=== PATIENT | female | born 1935 | race Caucasian/White ===

== ENCOUNTER 2018-03-04 10:30 | Inpatient (IN) ==
[2018-02-25 18:24] LABS: Basophils # (Auto) 0 K/mcL (0.0-0.3); Basophils % (Auto) 0.3 % (0.0-2.0); Eosinophils # (Auto) 0.3 K/mcL (0.0-0.7); Eosinophils % (Auto) 3.3 % (0.0-7.0); Granulocytes % (Auto) 61.5 % (38.0-78.0); Lymphocytes # (Auto) 2.9 K/mcL (1.5-4.8); Lymphocytes % (Auto) 27.5 % (15.5-49.0); Mean Cell Volume 86.4 fL (80.0-100.0); Mean Corpuscular HGB Conc 32.8 g/dL (31.0-36.0); Mean Corpuscular Hemoglobin 28.3 pg (26.0-34.0); Monocytes # (Auto) 0.8 K/mcL (0.1-0.9); Monocytes % (Auto) 7.4 % (1.0-12.0); Platelet Count 250 K/mcL (140-440); RBC 5.11 M/mcL (4.00-5.20); Red Cell Distribution Width 14.6 % (11.5-14.5)
[2018-02-25 18:46] LABS: Blood Urea Nitrogen 14 mg/dl (8-23)
[2018-02-25 23:48] LABS: Appearance,Urine CLOUDY; Bilirubin,Urine NEG (NEG); Color,Urine YELLOW; Glucose,Urine (UA) NEGATIVE (NEG); Leukocyte Esterase,Urine 500 /uL (NEG); Protein,Urine NEG (NEG); Urine Blood 0.03 mg/dL (<0.03); Urobilinogen,Urine NEG (NEG)
[2018-02-26 00:56] LABS: Bacteria,Urine MANY /hpf (0); Urine RBC 10 /hpf (0-1); Urine Squamous Epithelial Cell 20 /hpf (0-4); Urine WBC > 182 /hpf (0-4)
[~2018-03-04 10:30] MED LIST: CELECOXIB 200 MG CAPSULE PO SCH; ceFAZolin 1 GM VIAL IV SCH; oxyCODONE 10 MG TAB.ER.12H PO SCH
[2018-03-04 14:01] LABS: Appearance,Urine CLEAR; Bilirubin,Urine NEG (NEG); Color,Urine YELLOW; Glucose,Urine (UA) NEGATIVE (NEG); Leukocyte Esterase,Urine NEG /uL (NEG); Protein,Urine NEG (NEG); Specific Gravity,Urine 1.013 (1.000-1.035); Urine Blood NEG mg/dL (<0.03); Urobilinogen,Urine NEG (NEG)
[2018-03-04] MEDS ORDERED: MIDAZOLAM 2 MG/2 ML VIAL ONE (15:06)
[2018-03-04] MEDS ORDERED: ePHEDrine 50 MG/ML AMPUL IV ONE (15:06)
[2018-03-04] MEDS ORDERED: PROPOFOL 200 MG/20 ML VIAL IV ONE (15:06)
[2018-03-04] MEDS ORDERED: DEXAMETHASONE 10 MG/ML VIAL ONE (15:06)
[2018-03-04] MEDS ORDERED: GENTAMICIN SULFATE 800 MG/20 ML VIAL IR ONE (15:45)
[2018-03-04] MEDS ORDERED: PROMETHAZINE 25 MG/ML VIAL IV PRN (16:20)
[2018-03-04] MEDS ORDERED: FLUMAZENIL 0.1 MG/ML ML IV PRN (16:20)
[2018-03-04] MEDS ORDERED: ACETAMINOPHEN 1,000 MG/100 ML BOTTLE IV ONE (16:20)
[2018-03-04] MEDS ORDERED: ONDANSETRON 4 MG/2 ML VIAL IV PRN ×2 (16:20→16:47)
[2018-03-04] MEDS ORDERED: NALOXONE HCL 0.4 MG/ML VIAL IV PRN (16:20)
[2018-03-04] MEDS ORDERED: MEPERIDINE 25 MG/ML SYRINGE IV PRN (16:20)
[2018-03-04] MEDS ORDERED: LACTATED RINGERS 250 ML IV PRN (16:20)
[2018-03-04] MEDS ORDERED: IPRATROPIUM/ALBUTEROL 3 ML AMPUL.NEB NEB PRN (16:20)
[2018-03-04] MEDS ORDERED: diphenhydrAMINE 50 MG/ML VIAL IV PRN (16:20)
[2018-03-04] MEDS ORDERED: BENZOCAINE/MENTHOL 1 LOZENGE PO PRN ×2 (16:20→16:47)
[2018-03-04] MEDS ORDERED: LACTATED RINGERS 1,000 ML IV SCH (16:30)
--- NOTE | 2018-03-04 16:46 | Brief Operative Note ---
Date of procedure: 03/04/18 Pre-op diagnosis: left hip oa Post-op diagnosis: same Procedure: left total hip arthroplasty Grafts/Implants: Yes Anesthesia: spinal Complications: none Surgeon: Graham Caicedo Manager Registration: Nicol Cerna Estimated blood loss (cc): 150 Specimens Removed/Pathology: none sent Condition: stable Disposition: PACU
[2018-03-04] MEDS ORDERED: FLEETS ADULT ENEMA PR PRN (16:47)
[2018-03-04] MEDS ORDERED: HYDROmorphone 2 MG/ML VIAL IV PRN (16:47)
[2018-03-04] MEDS ORDERED: ONDANSETRON ODT 4 MG TABLET SL PRN (16:47)
[2018-03-04] MEDS ORDERED: POLYETHYLENE GLYCOL 3350 17 GM PACKET PO PRN (16:47)
[2018-03-04] MEDS ORDERED: METHOCARBAMOL 750 MG TABLET PO PRN (16:47)
[2018-03-04] MEDS ORDERED: ACETAMINOPHEN 325 MG TABLET PO PRN (16:47)
[2018-03-04] MEDS ORDERED: MAGNESIUM HYDROXIDE 30 ML ORAL.SUSP PO PRN (16:47)
[2018-03-04] MEDS ORDERED: BISACODYL 10 MG SUPP.RECT PR PRN (16:47)
[2018-03-04] MEDS ORDERED: TRANEXAMIC ACID 1,000 MG/10 ML VIAL IV ONE (16:47)
[2018-03-04] MEDS: fentaNYL 100 MCG/2 ML VIAL IV PRN ×2 (17:35→18:00)
[2018-03-04] MEDS ORDERED: METHOCARBAMOL 1,000 MG/10 ML VIAL IV ONE (17:50)
--- NOTE | 2018-03-04 18:03 | XRay Report ---
CLINICAL INFORMATION: Postop total hip prostheses COMPARISON: 03/22/2015 FINDINGS: Left total hip prostheses is in place. There is slightly more anteversion and lateral canting of the acetabular component and is typically seen. Right lateral hip prostheses remains in near-anatomic alignment without loosening or infection. No osseous abnormality. Soft tissue swelling. IMPRESSION: Postsurgical change as described Interpreted and Authenticated by: Graham Rico 03/04/18
[2018-03-04] MEDS: 0.9 % SODIUM CHLORIDE 1,000 ML IV SCH (18:21)
[2018-03-04] MEDS: DOCUSATE SODIUM 100 MG CAPSULE PO SCH (20:53)
[2018-03-04] MEDS: LOSARTAN 50 MG TABLET PO SCH (20:53)
[2018-03-04] MEDS: ASPIRIN 325 MG ENTERIC COATED TABLET PO SCH (20:53)
[2018-03-04] MEDS: oxyCODONE/APAP 5/325MG TABLET PO PRN (20:54)
[2018-03-04] MEDS: 0.9 % SODIUM CHLORIDE 10 ML SYRINGE IV SCH (20:56)
[2018-03-04] MEDS ORDERED: ATORVASTATIN 20 MG TABLET PO SCH (21:00)
[2018-03-04] MEDS ORDERED: SENNOSIDES 1 TABLET PO SCH (21:00)
[2018-03-04] MEDS: CLINDAMYCIN 900 MG in DEXTROSE 5% IN WATER 50 ML IV SCH (22:44)
[2018-03-05] MEDS: 0.9 % SODIUM CHLORIDE 1,000 ML IV SCH ×3 (02:58→08:29)
[2018-03-05] MEDS: 0.9 % SODIUM CHLORIDE 10 ML SYRINGE IV SCH ×2 (05:01→14:23)
[2018-03-05] MEDS: oxyCODONE/APAP 5/325MG TABLET PO PRN (05:01)
[2018-03-05] MEDS: CLINDAMYCIN 900 MG in DEXTROSE 5% IN WATER 50 ML IV SCH (07:12)
[2018-03-05] MEDS ORDERED: OMEPRAZOLE 20 MG CAPSULE PO SCH (07:30)
--- NOTE | 2018-03-05 07:46 | Orthopedic Progress Note ---
Subjective Patient information: Note initiated : 03/05/18 at 7:45 am Service Date, if different from initiated Date: [] Patient: Marely Moe 82 y/o F admitted on 03/04/18 for Left Total Hip Arthroplasty. Chief Complaint: [] Interval history: doing well. no complaints, been up with pt Objective Vital signs: Vital Signs Temp Pulse Pulse Resp BP BP Pulse Ox 03/05/18 07:05 97.7 F 65 12 110/64 95 03/05/18 03:22 97.5 F 67 12 117/61 94 03/05/18 00:00 97.4 F 64 12 122/68 96 03/04/18 21:54 91 03/04/18 20:57 96.5 F L 68 12 133/75 98 03/04/18 20:00 96 03/04/18 19:57 59 L 121/75 95 03/04/18 19:27 60 110/67 94 03/04/18 19:12 61 115/71 94 03/04/18 18:59 64 83/67 93 03/04/18 18:43 60 112/63 94 03/04/18 18:28 60 101/57 94 03/04/18 18:13 66 117/54 86 L 03/04/18 18:09 66 17 102/60 94 03/04/18 17:58 67 20 120/82 94 03/04/18 17:43 64 12 101/50 94 03/04/18 17:28 66 17 110/74 96 03/04/18 17:13 97.3 F 76 14 123/58 98 03/04/18 16:47 66 03/04/18 13:28 97.4 F 57 L 16 118/56 95 Intake and Output 03/04/18 03/05/18 03/05/18 21:59 05:59 13:59 Intake Total 2300 / 2300 1306 / 1306 Output Total 200 / 200 Balance 2300 / 2300 1106 / 1106 Intake: IV 100 / 100 1056 / 1056 Sodium Chloride 0.9% 1,000 ml @ 1000 / 1000 125 mls/hr IV .Q8H ANNY Rx#: [id number] Cleocin 900 mg In Dextrose 5% 56 / 56 in Water 50 ml @ 100 mls/hr IV Q8H ANNY Rx#:[id number] Oral 250 / 250 IV - Manual Only 2199 Output: Void Amount 200 / 200 Other: Meal Jello Percent of Meal Consumed 100% Feeding Ability Independent Weight 140 lb 8 oz Intake & Output: Intake & Output 03/04/18 03/05/18 03/05/18 21:59 05:59 13:59 Intake Total 2300 / 2300 1306 / 1306 Output Total 200 / 200 Balance 2300 / 2300 1106 / 1106 Weight 140 lb 8 oz Intake: IV 100 / 100 1056 / 1056 Sodium Chloride 0.9% 1,000 ml @ 1000 / 1000 125 mls/hr IV .Q8H ANNY Rx#: [id number] Cleocin 900 mg In Dextrose 5% 56 / 56 in Water 50 ml @ 100 mls/hr IV Q8H ANNY Rx#:[id number] Oral 250 / 250 IV - Manual Only 2199 Output: Void Amount 200 / 200 Other: Meal Jello Percent of Meal Consumed 100% Feeding Ability Independent Incision: Yes healing Incision clean and dry: Yes Dressing: Yes clean, Yes dry, Yes intact Weight bearing status: full Neurological exam IM: Yes alert, Yes normal gait, Yes oriented X3, Yes motor sensory intact, Yes neurovascular intact Extremities exam IM: No calf tenderness, Yes Foot pink and warm, Yes neurovascular intact - Labs CBC & BMP: 03/05/18 05:10 02/25/18 14:40 Labs: Orthopedic Labs 02/25/18 14:41 PT 13.6 INR 1.0 03/05/18 02/25/18 05:10 14:41 Hgb 12.5 14.5 Hct 38.1 44.2 Assessment and Plan (1) Hip osteoarthritis pod 1 s/p lorenzo wbat pain control dvt prophylaxis d/c planning Status: Acute
--- NOTE | 2018-03-05 07:47 | Discharge Summary ---
Ortho Discharge - [facility] - Patient Instructions Diet: Regular Diet Activity: activity as tolerated, weight bearing as tolerated Total Hip Protocol: Follow activity instructions as provided by Physical Therapy. Dressing Care: May shower in 2 days - Problem Maintenance (1) Hip osteoarthritis Status: Acute - Follow Up Plan Follow Up Appointments: Graham Caicedo MD [Physician] - 03/19/18 2:30 pm Disposition: Home, Self-Care Prognosis: Good Rehab Potential: Good I certify that the patient requires SNF services: No Overall status at discharge: patient is progressing back to baseline
[2018-03-05] MEDS ORDERED: POTASSIUM CHLORIDE 10 MEQ TABLET PO SCH (08:00)
--- NOTE | 2018-03-05 08:14 | Operative Note ---
DATE OF OPERATION: 03/04/2018 PREOPERATIVE DIAGNOSIS: Degenerative joint disease, left hip. POSTOPERATIVE DIAGNOSIS: Degenerative joint disease, left hip. PROCEDURE: Left total hip arthroplasty. SURGEON: Faye Caicedo M.D. [employer] SURGEON: Nicol Cerna PA-C. ANESTHESIA: Spinal with LMA assist. ESTIMATED BLOOD LOSS: 150 mL. COMPLICATIONS: None noted. SPECIMENS REMOVED: None. DRAINS: None. IMPLANTS: DePuy Barnstead Hole Eliminator; DePuy [place] Gription acetabular shell, 50 mm; DePuy [place] Altrx polyethylene acetabular liner, neutral, 32 x 50; DePuy Biolox delta ceramic femoral head +5, 32 diameter; DePuy Actis Duofix femoral stem, cementless, size 6 standard collar. INDICATIONS: The patient has had a longstanding history of worsening pain in the hip that has failed conservative treatment. Radiographs have confirmed advanced degenerative joint disease. After a long discussion about treatment options, the patient elected to proceed with a hip arthroplasty. The risks and benefits were discussed with the patient in detail including, but not limited to, the risks of anesthesia, problems with the heart or lungs related to anesthesia, infection, compromise or injury to the nerves and blood vessels, deep venous thrombosis, pulmonary embolism, pneumonia, continued pain after surgery, worsening pain or symptoms after surgery, swelling, loss of motion, instability, leg length discrepancy, and need for repeat surgery. DESCRIPTION OF PROCEDURE: The patient was seen in pre-anesthesia waiting room where all questions were answered and the correct side and site were identified and marked. The patient was then brought to the operating room and administered the anesthetic and given pre-operative antibiotics. A time-out was then called. The patient was placed in the lateral decubitus position with all prominences well-padded using the Sam frame and the extremity was prepped and draped in the usual sterile fashion. Anesthesia gave the patient 1 gm of tranexamic acid via an intravenous route. A standard posterior approach was made. We dissected through the skin and subcutaneous tissue to the deep fascia. The deep fascia was split in line with the incision and a Charnley retractor was placed. We exposed, tagged, and incised the short external rotators and piriformis tendon and retracted them posteriorly to help protect the sciatic nerve which was palpated throughout the case. We then performed a T-capsulotomy and tagged the capsule edges. Prior to dislocating the hip, we set a length and offset gauge from a Steinmann pin in the iliac wing to a mynor on the greater trochanter. The hip was then dislocated and a femoral neck osteotomy was performed to the pre-surgical templated level off the lesser trochanter. The head was removed and sized. We next turned our attention to the acetabulum. Retractors were placed for optimal visualization. A complete labral excision was performed. The capsule was preserved for later closure. We began reaming using anatomic landmarks with the DePuy [place] acetabular system. We medialized the cup and reamed up to provide good fill and coverage of the trial. When the trial was stable and appropriately positioned with approximately 20 degrees of anteversion and 45 degrees of abduction, we impacted the DePuy [place] cup and placed a cancellous screw in the posterior-superior quadrant. Osteophytes were removed from around the shell. We placed the trial liner and turned our attention to the femur. We placed retractors for visualization, internally rotated the femur, and established intramedullary access. We broached using the DePuy Actis stem to a stable platform medial, lateral, and rotationally with the appropriate version. We then performed a calcar reaming off the broach. Trials were then placed and optimized for leg length and stability. We used the leg length and offset guide to confirm our trials. Best stability, length, and offset characteristics were obtained with these sizes. We removed all trials and impacted the polyethylene acetabular liner in a standard fashion after a thorough irrigation. We then impacted the femoral stem to its broached location and placed the head. Final reduction was performed. Again, good stability, leg length, and offset characteristics were noted. We irrigated with three liters of antibiotic saline. We closed the capsule with #2 FiberWire. We closed the fascia with a combination of looped #0 Maxon and #0 Vicryl. We closed the subcutaneous tissue and skin in layers out to dianne in the skin. A sterile pressure dressing and abduction wedge was applied. All needle and sponge counts were correct. The patient was transferred to the recovery room in stable condition. Toshia Job ID: [id number] Doc ID: [id number] Faye Caicedo MD
[2018-03-05] MEDS: ASPIRIN 325 MG ENTERIC COATED TABLET PO SCH (08:26)
[2018-03-05] MEDS: DOCUSATE SODIUM 100 MG CAPSULE PO SCH (08:26)
[2018-03-05] MEDS: LOSARTAN 50 MG TABLET PO SCH (08:28)
[2018-03-05] MEDS ORDERED: amLODIPine 5 MG TABLET PO SCH (09:00)
[2018-03-05] MEDS ORDERED: METOPROLOL SUCCINATE 50 MG TAB.XL.24H PO SCH (09:00)
[2018-03-05] MEDS ORDERED: ISOSORBIDE MONONITRATE 60 MG TAB.XL.24H PO SCH (09:00)
[2018-03-05] MEDS ORDERED: GEMFIBROZIL 600 MG TABLET PO SCH (09:00)
== END 2018-03-05 14:45 | disposition home or self-care (01) | DRG 470 ==
LOC: MEDSUR 11:25
PROVIDERS: ADMIT Orthopaedic Surgery Sports Medicine; ATTEND Orthopaedic Surgery Sports Medicine